=== PATIENT | female | born 1980 | race Caucasian/White ===

== ENCOUNTER 2019-05-12 16:26 | Emergency (ER) | payer OTHER ==
[~2019-05-12] VITALS: Ht 162.6 cm; Wt 89.4 kg
[2019-05-12 16:41] VITALS: Ht 162.6 cm; Wt 89.4 kg
[2019-05-12 21:30] VITALS: BP 129/79
== END 2019-05-12 21:30 | disposition home or self-care (01) ==
LOC: ED 16:26
DX: S20.212A Contusion of left front wall of thorax, initial encounter (principal); Z90.89 Acquired absence of other organs; V43.12XA Car passenger injured in collision with other type car in nontraffic accident, initial encounter; Y93.89 Activity, other specified; Y92.413 State road as the place of occurrence of the external cause; Y99.8 Other external cause status